=== PATIENT | male | born 1990 | race Caucasian/White ===

== ENCOUNTER 2024-03-16 18:22 | Emergency (ER) | payer BC, SELFPAY ==
[2024-03-16 18:24] VITALS: BP 135/85
--- NOTE | 2024-03-16 18:29 | ED.GENMED ---
History of Present Illness
<Nhung Lyn PA-C - Last Filed: 03/16/24 21:20>
General
Chief Complaint: Skin Surface Trauma
Source: patient
Exam Limitations: none
Time Seen by Provider: 03/16/24 18:28
Nursing documentation reviewed up to this point in time: agreed with
Travel History
Have you had any contact with someone who has COVID-19?: No
Do you have any symptoms of coronavirus? Fever > 100 degrees, chills, cough, shortness of breath, sore throat, loss of taste or smell, muscle aches, or headache?: No
History of Present Illness
History of Present Illness:
33-year-old male with a past medical history of asthma presenting emergency department today with concerns of a laceration on his right arzate following injury on a pool filter. Patient states that he was walking by the pool when he caught his foot
in a new pool filter and fell into the opening. Patient states that when he fell, he just fell straight down and never hit his head or injure any other part of his body. Patient currently complains of burning pain at the site of the wound, but
denies any bone pain. Patient has no difficulty walking. Patient did not hit his head during the fall. Patient denies any neck pain. Patient is not up-to-date on his tetanus, patient will update this today. Patient denies any medication
allergies
Past History
<Nhung Lyn PA-C - Last Filed: 03/16/24 21:20>
Past History
ED Past Medical History: Asthma and Other (Scoliosis and spondylolisthesis)
ED Past Surgical History: None
Social History
Tobacco: Non-smoker
Alcohol: Daily (2 beers)
Drug: None
Personal: Single
Living: with family
Employment: Employed (Teacher in the [employer])
Family History
Family History: Other (n/c)
Review of Systems
<Nhung Lyn PA-C - Last Filed: 03/16/24 21:20>
Review of Systems
All Other Systems: ROS reviewed and negative except as documented in HPI and ROS
Phy Exam
<Nhung Lyn PA-C - Last Filed: 03/16/24 21:20>
Physical Exam
Physical Exam:
General: Patient is well appearing and in no acute distress; non-toxic
Skin: Warm and dry, there is a 2.5 cm V shaped laceration on the right anterior arzate with a concurrent abrasion. It is actively bleeding.
Head: Normocephalic, atraumatic
Eyes: Sclera non-icteric. EOMs intact. PERRLA.
Cardiac: Regular rate
Peripheral Vascular: No lower extremity swelling or edema. 2+ dorsalis pedis pulses bilaterally.
Pulm: Normal respiratory effort
Musculoskeletal: Right ankle anterior drawer testing negative. No pain with varus valgus testing. No pain with passive range of motion bilateral lower extremities.
Neuro: CN II-XII intact, no focal neurologic deficits.
Psychiatric: Appropriate mood and affect.
Course
<Nhung Lyn PA-C - Last Filed: 03/16/24 21:20>
Orders/Labs/Results
Orders:
Orders
03/16/24 19:31
Tetanus/Diphth/Acelpertussis [Adacel] 0.5 ml IM .ONCE ONE
Vital Signs
Initial and Last Documented VS:
Initial Vital Signs
Temp Pulse Resp BP Pulse Ox
36.5 C 94 16 135/85 98
03/16/24 18:24 03/16/24 18:24 03/16/24 18:24 03/16/24 18:24 03/16/24 18:24
Last Documented Vital Signs
Temp Pulse Resp BP Pulse Ox
36.5 C 94 16 135/85 98
03/16/24 18:24 03/16/24 18:24 03/16/24 18:24 03/16/24 18:24 03/16/24 18:24
<Jarrett Nielsen MD - Last Filed: 03/17/24 00:19>
Orders/Labs/Results
Orders:
Orders
03/16/24 19:31
Tetanus/Diphth/Acelpertussis [Adacel] 0.5 ml IM .ONCE ONE
Vital Signs
Initial and Last Documented VS:
Initial Vital Signs
Temp Pulse Resp BP Pulse Ox
36.5 C 94 16 135/85 98
03/16/24 18:24 03/16/24 18:24 03/16/24 18:24 03/16/24 18:24 03/16/24 18:24
Last Documented Vital Signs
Temp Pulse Resp BP Pulse Ox
36.5 C 94 16 135/85 98
03/16/24 18:24 03/16/24 18:24 03/16/24 18:24 03/16/24 18:24 03/16/24 18:24
Procedures
<Nhung Lyn PA-C - Last Filed: 03/16/24 21:20>
Laceration Closure
Right Anterior Leg:
Status of Wound: clean
Size of Wound in cm: 2.5
Description of Wound Edges: sharp and flap-well vascularized
Preparation: cleaned with saline and cleaned with Betadine
Anesthesia: 1% Lidocaine with epi
Wound exploration: explored to base- no FB
Type of Closure: single layer closure
Skin Closure Material: 4-0 nylon
Number of sutures: 8
<Nhung Lyn PA-C - Last Filed: 03/16/24 21:20>
MDM/Problems Addressed
Differential Diagnosis Includes:
Laceration to right arzate
MDM/Problems Addressed:
laceration
Chronic conditions affecting care:
n/a
Acute Exacerbation and/or Progression of Chronic Illness:
n/a
<Nhung Lyn PA-C - Last Filed: 03/16/24 21:20>
*Pulse Oximetry
Patient hypoxic: no
*Critical Care Note
Total Time (30-74mins, 75-104mins- exclusive of procedures): Not Applicable
Data Reviewed
Review of Other/Old Records Reveals: Records (Reviewed ER physician documentation from 07/30/2017) and Discharge Summary (Discharge summaries [facility] to review)
Source: patient and records
Prescriptions/Medications Considered But Not Given:
Tetanus vaccine updated here in the emergency department
<Nhung Lyn PA-C - Last Filed: 03/16/24 21:20>
Patient Management
Escalation/DeEscalation of care consider admission/obs:
33-year-old male with a past medical history of asthma presenting emergency department today with concerns of a laceration on his right arzate following injury on a pool filter. On physical exam, patient has a V-shaped laceration on the right
anterior arzate. This was repaired with 4-0 nylon sutures, patient tolerated the procedure well. Discussed wound care and return precautions. Family and patient concerned about developing an infection in the coming days, discussed signs of
infection, antibiotic prescription given to fill on a as needed basis. Patient and family agree with plan. Patient endured no other injuries, well-appearing, no signs of head trauma, patient stable for discharge. No indication for plan films of
lower extremity.
ED Attending Note
<Nhung Lyn PA-C - Last Filed: 03/16/24 21:20>
-
Portions of this chart may have been created with voice recognition software.� Occasional wrong word or��sound alike� substitutions may have occurred due to the inherent limitations of voice recognition software.
<Jarrett Nielsen MD - Last Filed: 03/17/24 00:19>
ED Attending Note
Patient seen and examined by attending physician: Yes
ED Attending Note:
I have seen and evaluated the patient with a [id number] encounter. I have spoken to the advance practicer provider and involved in the medical history, the physical exam, medical decision making.
Evaluation and management service: agree unless noted differently below.
Results interpretation: agree unless noted differently below.
Focused HPI: 33-year-old male presents with a leg laceration. Patient was walking near his pool and stepped on the filter box which opened up and his leg fell into the filter and he sustained a laceration on the plastic. He has a laceration to the
anterior right arzate as well as an adjacent abrasion. No other injuries or complaints. Unsure of last tetanus.
Physical exam: Awake alert not in distress. Vitals normal. He has a laceration right anterior arzate approximate 2.5 cm V-shaped adjacent abrasion proximal to the laceration.
Medical Decision Makin-year-old male with leg laceration. Irrigated and repaired as documented procedure note. Tetanus updated. Discharged with plan for return for suture removal. spoke about return precautions including no signs of
infection. All questions answered.
Discharge Plan
Departure
Patient Disposition: Home (Routine Discharge)
Date of Disposition: 03/16/24
Time of Disposition: 19:34
Patient with high blood pressure during this ER visit?: Yes
Condition: Good
Discharge Problem:
Laceration of arzate
Instructions: Wound Care (DC), Laceration Repair With Stitches (DC), BLOOD PRESSURE
Prescriptions:
New
cephalexin 500 mg capsule
500 mg PO QID 7 Days Qty: 28 0RF
No Action
prednisone 50 MG tablet
50 mg PO DAILY Qty: 4 0RF
epinephrine [EpiPen] 0.3 MG/0.3/SYRINGE auto-injector
0.3 mg IM .STAT PRN (Reason: allergy) Qty: 1 0RF
Rx Instructions:
allergic symptoms
Referrals:
Michelet Uribe MD [Family Provider] -
Activity Restrictions/Additional Instructions:
You can expect clear to bloody drainage from the wound.
Please report to your primary care provider, urgent care, or the emergency department to have your stitches removed in 7-10 days.
Please keep the wound dry for 24 hours. After 24 hours, you can wash the wound with mild soap and water.
Please return to the emergency department should you develop fevers or chills, redness surrounding your wound, purulent drainage from the wound, or any other concerning signs or symptoms.
SHOULD YOU DEVELOP SIGNS OF INFECTION you can start keflex, you can take one pill 4 times daily for 7 days.
Interventions
Interventions:
*Risk Screen - Suicide Last Done: 03/16/24 18:29
*General Assessment Last Done: 03/16/24 18:29
*Neglect/Abuse Screening Last Done: 03/16/24 18:29
ED- Fall Risk Assessment Last Done: 03/16/24 19:56
*ED COVID-19 Vaccine History Last Done: 03/16/24 18:24
*Nursing Disposition Last Done: 03/16/24 19:56
ED-Skin Assessment Last Done: 03/16/24 18:29
Discharge Date and Time
Discharge Date/Time: 03/16/24 19:59
Print Language: PERSIAN
[2024-03-16] MEDS: ADACEL 0.5 ML IM (19:52)
== END 2024-03-16 19:59 | disposition home or self-care (01) ==
LOC: EMR 18:22
PROVIDERS: EMERGENCY PHYSICIAN Emergency Medicine; FAMILY PHYSICIAN Family Medicine
DX: S81.811A Laceration without foreign body, right lower leg, initial encounter (principal); W18.09XA Striking against other object with subsequent fall, initial encounter; Y93.01 Activity, walking, marching and hiking; Y92.34 Swimming pool (public) as the place of occurrence of the external cause; Z23 Encounter for immunization; R03.0 Elevated blood-pressure reading, without diagnosis of hypertension; J45.909 Unspecified asthma, uncomplicated; M41.9 Scoliosis, unspecified; M43.10 Spondylolisthesis, site unspecified
CPT/HCPCS: 99283; 90471; 12001; 90715